=== PATIENT | male | born 1945 | race Caucasian/White ===

== ENCOUNTER 2016-09-04 21:45 | Emergency (ER) | payer MEDICARE, OTHER ==
[~2016-09-04 21:45] MED LIST: IMDUR PO; PLAVIX PO; SEROQUEL PO; WELLBUTRIN PO; ZOLOFT PO
== END 2016-09-05 00:05 | disposition expired ==
LOC: CED 21:45
DX: J44.9 Chronic obstructive pulmonary disease, unspecified; F17.200 Nicotine dependence, unspecified, uncomplicated
CPT/HCPCS: 92950; 99285; J0171